=== PATIENT | female | born 1970 | race American Indian/Alaskan Native ===

== ENCOUNTER 2017-11-25 16:43 | Emergency (ER) | payer OTHER ==
[2017-11-25 17:06] VITALS: BP 152/86
[2017-11-25] MEDS ORDERED: TYLENOL PO ONE (17:06)
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
== END 2017-11-25 19:53 | disposition home or self-care (01) ==
LOC: EDBD → ED 16:43
DX: R51 Headache (principal); M54.2 Cervicalgia; I10 Essential (primary) hypertension; F17.200 Nicotine dependence, unspecified, uncomplicated; F12.90 Cannabis use, unspecified, uncomplicated; V43.62XA Car passenger injured in collision with other type car in traffic accident, initial encounter; Y93.89 Activity, other specified; Y92.488 Other paved roadways as the place of occurrence of the external cause; Y99.8 Other external cause status
CPT/HCPCS: 70450; 72125; 99284